=== PATIENT | male | born 1975 | race Hispanic/Latino ===

== ENCOUNTER 2016-09-08 13:11 | Emergency (ER) | payer OTHER ==
[~2016-09-08] VITALS: Ht 172.7 cm; Wt 78.0 kg
[2016-09-08 13:24] VITALS: BP 117/75
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
[2016-09-08] MEDS ORDERED: CYCLOBENZAPRINE10 M1 PO (15:16)
[2016-09-08] MEDS ORDERED: IBUPROFEN600 M1 PO (15:16)
== END 2016-09-08 15:28 ==
LOC: ERH 13:11
DX: S39.012A Strain of muscle, fascia and tendon of lower back, initial encounter (principal); S16.1XXA Strain of muscle, fascia and tendon at neck level, initial encounter; S06.0X0A Concussion without loss of consciousness, initial encounter; V49.40XA Driver injured in collision with unspecified motor vehicles in traffic accident, initial encounter; Y92.411 Interstate highway as the place of occurrence of the external cause